=== PATIENT | male | born 1930 | race Caucasian/White ===

== ENCOUNTER 2017-08-03 16:07 | Inpatient (IN) | payer MEDICARE ==
[2017-08-03] MEDS ORDERED: Fentanyl 100 MCG/2 ML VIAL ONE (17:43)
[2017-08-03 18:00] LABS: #Lymphocytes 1.1 thou/uL (1.20-3.40); #Monocytes 0.6 thou/uL (0.11-0.59); #Neutrophils 5.6 thou/uL (1.40-6.50); %Basophils 0.4 % (0.0-1.0); %Eosinophils 0.5 % (0.0-10.0); %Lymphocytes 14.4 % (21.0-51.0); %Monocytes 8.3 % (0.0-10.0); %Neutrophils 76.4 % (42.0-75.0); Hemoglobin 13.3 g/dL (14.0-18.0); Mean Corpuscular HGB CONC 32.2 g/dL (32.0-36.0); Mean Corpuscular Hemoglobin 29.4 pg (27.0-31.0); Mean Corpuscular Volume 91.3 fl (80.0-94.0); Mean Platelet Volume 6.9 fL (7.4-10.4); Platelet Count 173 thou/uL (130-400); RBC Distribution Width 13.1 % (11.5-14.5); Red Blood Cell (RBC) Count 4.52 mill/uL (4.70-6.10); White Blood Cell (WBC) Count 7.3 thou/uL (4.8-10.8)
--- NOTE | 2017-08-03 18:08 | RAD ---
AP PELVIS: 08/03/17 HISTORY: Fall. Left hip pain. FINDINGS/IMPRESSION: There is a fracture involving the neck of the left femur. POS: ADELA
[2017-08-03 18:21] LABS: ALT (SGPT) 9 U/L (8-55); AST (SGOT) 17 U/L (5-34); Albumin 4.2 g/dL (3.4-4.8); Alkaline Phosphatase 72 U/L (40-150); Anion Gap 13 mmol/L (10-20); BUN (Urea Nitrogen) 22 mg/dL (8.4-25.7); Bilirubin, Total 0.6 mg/dL (0.2-1.2); Calc. Creatinine Clearance 0 mL/min (70-130); Calcium 9.7 mg/dL (7.8-10.44); Carbon Dioxide 24 mmol/L (23-31); Chloride 106 mmol/L (98-107); Estimated GFR-MDRD 48; Globulin 2.7 g/dL (2.4-3.5); Glucose 195 mg/dL (83-110); Potassium 4.3 mmol/L (3.5-5.1); Protein, Total 6.9 g/dL (5.8-8.1); Sodium 139 mmol/L (136-145)
[2017-08-03] MEDS ORDERED: hydrALAZINE 20 MG/ML VIAL SLOW IVP PRN (19:10)
[2017-08-03] MEDS ORDERED: Dextrose 50% Abboject 50 ML SYRINGE SLOW IVP PRN (19:10)
[2017-08-03] MEDS ORDERED: Dextrose 5% in Water 1,000 ML IV PRN (19:10)
[2017-08-03] MEDS ORDERED: Ondansetron ODT 4 MG TAB PO PRN (19:10)
[2017-08-03] MEDS ORDERED: Ondansetron HCl/PF 4 MG/2 ML Vial IVP PRN (19:10)
[2017-08-03] MEDS ORDERED: Promethazine HCl 25 MG/ML VIAL IM PRN (19:10)
[2017-08-03] MEDS ORDERED: CEFAZOLIN/Water 2 GM/20 ML SYRINGE SLOW IVP SCH (19:45)
--- NOTE | 2017-08-03 20:58 | CON ---
DATE OF CONSULTATION: 08/03/2017 REQUESTING PHYSICIAN: Dr. Darin Kuhn. BRIEF HISTORY OF PRESENT ILLNESS: The patient is an 87-year-old gentleman who is in a [facility]. Earlier today he reports that while at his home, he stepped backwards, slipped and fell, landing on his left side. He reports immediate groin pain and proximal thigh pain. He wa s subsequently evaluated at the [facility] where x-rays were obtained and showe d a mildly displaced femoral neck fracture. The patient was subsequently transferred to [place], [place] for orthopedic evaluation and definitive care. The patient denies any dizziness or lo ss of consciousness. He denies striking his head as a result of the fall. Of note, the patient's [facility] hospitalization was in January 2017 at which time he had a syncopal episode and collapse. PAST MEDICAL HISTORY: Remarkable for coronary artery disease, type 2 diabetes, Parkinson's disease, hyperlipidemia, and benign prostatic hypertrophy. PAST SURGICAL HISTORY: Includes pacemaker placement and tonsillectomy. ALLERGIES: None known. MEDICATIONS: At the time the admission, his emergency room list of medications included aspirin, pro pranolol, simvastatin, tamsulosin, pramipexole, niacin, and levodopa. REVIEW OF SYSTEMS: The patient denies any recent fevers, chills, or sweats. He denies current chest pain or shortness of breath. He denies numbness or tingling in the lower extremity except for some minor stocking distribution dysesthesias. FAMILY HISTORY: Noncontributory. SOCIAL HISTORY: The patient does not smoke. He denies alcohol. He does live by himself in an [facility] living environment. PHYSICAL EXAMINATION: VITAL SIGNS: He was found to have a temperature of 97.8 degrees Fahrenheit, a heart rate of 73, resp iratory rate of 18, and blood pressure 124/68. HEENT: Atraumatic, normocephalic. His oral mucous membranes are dry. NECK: Nontender and supple. HEART: Shows a regular rate and rhythm without murmur. Chest wall is nontender. LUNGS: Remarkable for good breath sounds bilaterally. ABDOMEN: Flat and nontender. EXTREMITIES: Remarkable for a left lower extremity with the hip held in slight flexion and external rotation. He has pain with log rolling of the thigh with pain felt in the groin area. The knee, ank le, and foot appear atraumatic. He is wiggling his toes and denies any new numbness in the lower ext remity. LABORATORY DATA: He was found to have a white count of 7.3, hematocrit 41.3 and 173,000 platelets. His chemistry panel is roughly within normal limits except for creatinine of 1.4 and glucose of 195. Hip x-rays were performed at [place] and a followup AP pelvis x-ray performed at [place]. Thes e are remarkable for a fractured femoral neck with some displacement. PT/INR is pending. ASSESSMENT: An 87-year-old gentleman status post ground level fall sustaining a left femoral neck fr acture with displacement. PLAN: At this time, the patient is being admitted to the trauma service. Tomorrow we will proceed w ith a left hip hemiarthroplasty. This evening I discussed with the patient the risks and benefits of this procedure. The risks include, but are not limited to bleeding, infection, nerve injury, DVT, d islocation, periprosthetic fracture, loss of limb or life, DVT, PE. The patient appears to understan d and does wish to proceed. Informed consent will be obtained prior to surgery.
[2017-08-03] MEDS: Sodium Chloride 0.9% 1,000 ML IV SCH (22:24)
[2017-08-03] MEDS: Famotidine/PF 20 mg/2ml Vial SLOW IVP SCH (22:24)
[2017-08-03] MEDS ORDERED: Acetaminophen 1,000 MG in Premix Bag 1 BAG IVPB PRN (23:09)
[2017-08-03] MEDS ORDERED: Carbidopa/Levodopa 10-100 mg Tablet PO SCH (23:30)
[2017-08-04] MEDS: Morphine 4 MG/ML VIAL SLOW IVP PRN ×4 (00:01→09:34)
[2017-08-04 00:21] VITALS: BMI 25.9
--- NOTE | 2017-08-04 01:49 | HP ---
DATE OF ADMISSION: 08/03/2017 REQUESTING PHYSICIAN: Venu Marcano D.O. ADMITTING PHYSICIAN: Dr. Kuhn. CONSULTING PHYSICIAN: Venu Vargas M.D. Orthopedics. HISTORY OF PRESENT ILLNESS: The patient is an 87-year-old male who was in his usual state of health at home when he was moving some things and his feet got tangled up in items on the floor, he fell ont o his left hip. He initially went to an outside hospital and was diagnosed with left hip fracture. He was then transferred to another hospital in the [facility]. He was then transferred to [facility] in [place], where repeat x-ray was done, showing a left femoral neck fracture. The patien t complains of pain to his left hip. The pain is controlled when he is not moving. The pain is inte nsified by movement. He describes no other areas of injury and no other pain. Trauma services was c onsulted for admission and management. Orthopedics has been consulted by the ER MD. PAST MEDICAL HISTORY: Coronary artery disease, diabetes, high cholesterol, Parkinson's. PAST SURGICAL HISTORY: Includes pacemaker placement and tonsillectomy. SOCIAL HISTORY: Denies alcohol, drug or tobacco use. FAMILY HISTORY: Mother from cancer. Father from lung disease. One sister with cancer. LABORATORY STUDIES: CBC: WBC 4.9, hemoglobin 13.4, hematocrit 40.8, platelets 154. Chemistry: Sod ium 137, potassium 5.1, CO2 of 22, BUN 23, creatinine 1.7, glucose 367. Diagnostic imaging pelvis x- ray with fracture involving neck of the left femur. REVIEW OF SYSTEMS: CONSTITUTIONAL: Denies chills, fever or weight change. HEENT: Negative. RESPIRATORY: Negative. Denies cough or shortness of breath. CARDIOVASCULAR: Negative. Denies chest pain or palpitations. GASTROINTESTINAL: Negative. Denies abdominal pain, constipation or diarrhea. MUSCULOSKELETAL: Left hip pain. SKIN: Negative. NEUROLOGIC: Negative. Denies sensory deficits. Denies focal weakness. PSYCHIATRIC: Negative. PHYSICAL EXAMINATION: CONSTITUTIONAL: An 87-year-old male lying on bed in no apparent distress. HEENT: Atraumatic, normocephalic. RESPIRATORY: Bilateral breath sounds clear. No respiratory distress. CARDIAC: Regular rate and rhythm. Heart sounds normal. ABDOMEN: Soft, nontender, nondistended. EXTREMITIES: Pain with palpation or movement to left lateral hip. Cap refill brisk all extremities. Neurovascular intact all extremities. NEUROLOGIC: GCS 15, alert and oriented x3. SKIN: No external trauma noted. ASSESSMENT AND PLAN: 1. An 87-year-old male ground level fall. 2. Left femoral neck fracture. PLAN: 1. Admit to hospital. 2. N.p.o., IV fluids, IV analgesia. 3. Consult to Dr. Vargas, Orthopedics. 4. Discussed code status with the patient. The patient is a full code. The patient was reviewed with Dr. Kuhn, who agrees with assessment and plan.
[2017-08-04 05:01] LABS: #Eosinphils 0.2 thou/uL (0.0-0.7); #Lymphocytes 0.8 thou/uL (1.20-3.40); #Monocytes 0.3 thou/uL (0.11-0.59); #Neutrophils 3.3 thou/uL (1.40-6.50); %Basophils 0.9 % (0.0-1.0); %Lymphocytes 16.9 % (21.0-51.0); %Monocytes 6.8 % (0.0-10.0); %Neutrophils 71.4 % (42.0-75.0); Hemoglobin 12.7 g/dL (14.0-18.0); Mean Corpuscular HGB CONC 33.2 g/dL (32.0-36.0); Mean Corpuscular Hemoglobin 31.2 pg (27.0-31.0); Mean Corpuscular Volume 93.9 fl (80.0-94.0); Mean Platelet Volume 7.8 fL (7.4-10.4); Platelet Count 166 thou/uL (130-400); Red Blood Cell (RBC) Count 4.07 mill/uL (4.70-6.10); White Blood Cell (WBC) Count 4.6 thou/uL (4.8-10.8)
[2017-08-04 05:03] LABS: PTT 25.7 SEC (22.9-36.1)
[2017-08-04 05:04] LABS: INR-International Normal Ratio 1.1; Prothrombin Time 14.2 SEC (12.0-14.7)
[2017-08-04 05:15] LABS: Anion Gap 14 mmol/L (10-20); BUN (Urea Nitrogen) 20 mg/dL (8.4-25.7); Calc. Creatinine Clearance 40 mL/min (70-130); Calcium 9.5 mg/dL (7.8-10.44); Carbon Dioxide 23 mmol/L (23-31); Chloride 103 mmol/L (98-107); Estimated GFR-MDRD 46; Glucose 320 mg/dL (83-110); Potassium 4.8 mmol/L (3.5-5.1); Sodium 135 mmol/L (136-145)
[2017-08-04] MEDS: Sodium Chloride 0.9% 1,000 ML IV SCH ×2 (06:43→17:28)
[2017-08-04] MEDS: Propranolol HCl 20 MG TAB PO SCH ×2 (09:27→21:28)
[2017-08-04] MEDS: Famotidine/PF 20 mg/2ml Vial SLOW IVP SCH ×2 (09:29→21:28)
[2017-08-04] MEDS: Pramipexole Di-HCl 0.125 MG TAB PO SCH ×4 (09:32→21:28)
[2017-08-04] MEDS: Tamsulosin HCl 0.4 MG CAP PO SCH (09:32)
[2017-08-04] MEDS: Carbidopa/Levodopa 10-100 mg Tablet PO SCH ×3 (09:41→21:27)
--- NOTE | 2017-08-04 12:21 | PRG ---
DATE OF SERVICE: 08/04/2017 ATTENDING PHYSICIAN: Jean Brock D.O. SUBJECTIVE: The patient is an 87-year-old male who sustained a hip fracture after a ground level fal l when he tripped on items at his home. He was initially seen at the outside facility and then trans ferred to [facility] for higher level of care. He was evaluated in the emergency room and admitted t o the floor by Trauma Services. Dr. Vargas, Orthopedic, has seen the patient and evaluated and mana nned for surgery later this afternoon. Pain has been well controlled. The patient has been stable i n the floor. OBJECTIVE: VITAL SIGNS: Temperature 98.7, pulse 69, respirations 15, O2 sat 95% on 2 liters O2, blood pressure 123/67. GENERAL: Elderly male lying in bed, in no acute distress. HEENT: Atraumatic, normocephalic. PULMONARY: Bilateral breath sounds clear to auscultation. No respiratory distress. CARDIOVASCULAR: Regular rate and rhythm. Heart sounds normal. ABDOMEN: Soft, nontender, nondistended. EXTREMITIES: Cap refill brisk. Neurovascular intact all extremities. Pain with palpation or moveme nt to left lateral hip area. NEUROLOGIC: GCS 15, awake, alert, oriented x3. ASSESSMENT: 1. An 87-year-old male status post ground level fall. 2. Left femoral neck fracture with displacement. 3. History of diabetes type 2. PLAN: 1. Continue current care as ordered on surgical floor. 2. Continue n.p.o., IV fluid. 3. Plan for OR today with Dr. Vargas. 4. Glucose has been elevated. I will not adjust the sliding scale insulin at this time. We will co ntinue to monitor after OR when the patient begins regular diet. 5. Chemical DVT prophylaxis when cleared by Orthopedic Surgery. 6. PT, OT evaluation. 7. Rehab referral. The patient was seen and examined with Dr. Brock, attending trauma surgeon, who agrees with the assessment and plan.
[2017-08-04] MEDS ORDERED: Insulin Regular 300 UNITS/3 ML VIAL ONE (13:38)
[2017-08-04] MEDS ORDERED: Fentanyl 100 MCG/2 ML VIAL ONE (13:55)
[2017-08-04] MEDS ORDERED: PHENYLEPHRINE-NS 100 MCG/ML 10 ML SYRINGE ONE (14:09)
[2017-08-04] MEDS ORDERED: Lidocaine 1% PF 5 ML VIAL ONE (14:09)
[2017-08-04] MEDS ORDERED: Propofol 200 MG/20 ML VIAL ONE (14:09)
[2017-08-04] MEDS ORDERED: Ondansetron HCl/PF 4 MG/2 ML Vial ONE (14:09)
--- NOTE | 2017-08-04 15:42 | OP ---
DATE OF SURGERY: 08/04/2017 PREOPERATIVE DIAGNOSIS: Left femoral neck fracture, displaced. POSTOPERATIVE DIAGNOSIS: Left femoral neck fracture, displaced. SURGICAL PROCEDURE: Left hip hemiarthroplasty. ANESTHESIA: General. SURGEON: Venu Vargas M.D. PIT RECORDER: Brandon Moreno PA-C IMPLANTS: [employer] [place] size 7 stem with 28 x 51 bipolar cup and a +8.5 head. BLOOD LOSS: 100 mL. DRAINS: None. SPECIMEN: None. OUTCOME: Satisfactory. COMPLICATIONS: None. INDICATIONS: The patient is a pleasant 87-year-old gentleman who fell in his senior living sustaining a displaced femoral neck fracture, left side. After discussion with patient including risks and elian efits, we decided to proceed with hemiarthroplasty. I believe all questions have been answered and i nformed consent has been obtained. PROCEDURE IN DETAIL: The patient was brought to the operating room and a timeout performed followed by induction of general anesthesia. The patient was then positioned in right lateral decubitus posit ion and a sterile prep and drape was performed of the left lower extremity. Next, a skin incision wa s made centered over the greater trochanter. After the skin was sharply incised, dissection was montoya ied down with electrocautery through the subcutaneous fat down to the tensor fascia and fascia bteo. This was incised in line with the skin incision and reflected anteriorly and posteriorly with a Aster nley retractor. The trochanteric bursa was swept off the short external rotators and then an elevato r was passed under the abductors exposing the piriformis superior and inferior gemelli. The piriform is was released from its femoral attachment and tagged and then reflected posteriorly as were the gem juan. Next, a T capsulotomy was performed with the edges of the leaflets of the capsule tagged for e ventual repair. At this point, the fracture could be visualized. The femoral head was then removed with a T handle corkscrew device. An oscillating saw was then used to make a femoral neck cut just a little under 1 cm above the lesser trochanter. Next, an initial T handle awl was passed down the ca nal of the femur. This was followed by passage of a lateralizing reamer. Sequential T handle machado were then passed down the canal up to a size 7, which gave excellent fit in the proximal shaft. Broa sarabjit was started at size 4 and continued up to a size 7, which also gave good fit. While the size [address], a calcar reamer was passed over the broach to further prepare the calcar region of the femur. A trial reduction was then performed with a 52 head and a +8.5 neck component. This was felt to be normalization of leg lengths with acceptable stability. This was then removed from th e proximal femur. The wound was then thoroughly irrigated with 3 liters of normal saline using Pulsa vac and then the final size 7 stem was inserted in the proximal femur followed by insertion of the bi polar cup. In the 90-90 position, the hip could be brought into a nearly 70 degrees of internal rota tion before subluxation was appreciated. Next, the leg was brought into extension and slight interna l rotation. The capsule was reapproximated with #2 Vicryl and then the piriformis and gemelli were r eattached with #2 Vicryl as well. The Charnley retractor was removed and then the fascia beto and te nsor fascia was reapproximated with #2 Vicryl followed by 0 Vicryl for Lynda's fascia, 2-0 Vicryl pompa bcutaneously, and jaspreet for the skin. A Xeroform gauze and tape dressing was then applied to the t high and then patient was then transferred to recovery room in stable condition. There were no compl ications. He tolerated the procedure well.
[2017-08-04] MEDS ORDERED: Ondansetron HCl/PF 4 MG/2 ML Vial IVP PRN (15:45)
[2017-08-04] MEDS ORDERED: Morphine 4 MG/ML Carpuject ONE (16:46)
[2017-08-04] MEDS: CEFAZOLIN/Water 2 GM/20 ML SYRINGE SLOW IVP SCH ×2 (16:59→23:23)
[2017-08-04] MEDS ORDERED: traMADol HCl 50 MG TAB PO PRN (20:33)
--- NOTE | 2017-08-04 20:48 | RAD ---
LEFT HIP TWO VIEWS: History: Post op total hip replacement. FINDINGS/IMPRESSION: There are post changes of placement of a left femoral head prosthesis in good position and alignment. Surgical jaspreet and soft tissue are present. POS: ADELA
[2017-08-04] MEDS: Atorvastatin Calcium 20 MG TAB PO SCH (21:28)
[2017-08-04] MEDS: HumaLOG 300 UNITS/3 ML VIAL SC PRN (21:29)
[2017-08-04] MEDS: traMADol HCl 50 MG TAB PO SCH (23:23)
[2017-08-04] MEDS: Acetaminophen 500 MG TAB PO SCH (23:23)
[2017-08-05] MEDS: Sodium Chloride 0.9% 1,000 ML IV SCH (03:44)
[2017-08-05] MEDS: traMADol HCl 50 MG TAB PO SCH ×3 (05:35→19:00)
[2017-08-05] MEDS: Acetaminophen 500 MG TAB PO SCH ×3 (05:35→19:00)
[2017-08-05 05:57] LABS: Band 5 % (5-11); Eosinophils 1 % (0-10); Hemoglobin 10.2 g/dL (14.0-18.0); Lymphocytes 22 % (21-51); MDiff Complete? YES; Mean Corpuscular HGB CONC 32.2 g/dL (32.0-36.0); Mean Corpuscular Hemoglobin 29.5 pg (27.0-31.0); Mean Corpuscular Volume 91.7 fl (80.0-94.0); Monocytes 5 % (0-10); Neutrophil 63 % (42-75); PLT Morphology Comment Appears Adequate; Platelet Count 140 thou/uL (130-400); RBC Distribution Width 12.6 % (11.5-14.5); Red Blood Cell (RBC) Count 3.44 mill/uL (4.70-6.10); White Blood Cell (WBC) Count 5.8 thou/uL (4.8-10.8)
[2017-08-05 05:59] LABS: Anion Gap 12 mmol/L (10-20); BUN (Urea Nitrogen) 21 mg/dL (8.4-25.7); Calc. Creatinine Clearance 40 mL/min (70-130); Calcium 8.5 mg/dL (7.8-10.44); Carbon Dioxide 23 mmol/L (23-31); Chloride 103 mmol/L (98-107); Estimated GFR-MDRD 46; Glucose 458 mg/dL (83-110); Magnesium 1.7 mg/dL (1.6-2.6); Phosphorus 3.1 mg/dL (2.3-4.7); Potassium 4.2 mmol/L (3.5-5.1); Sodium 134 mmol/L (136-145)
[2017-08-05] MEDS: HumaLOG 300 UNITS/3 ML VIAL SC PRN ×3 (06:02→21:13)
[2017-08-05] MEDS ORDERED: Dextrose 5% in Water 1,000 ML IV PRN ×2 (07:03→15:36)
[2017-08-05] MEDS ORDERED: HumaLOG 300 UNITS/3 ML VIAL SC PRN (07:03)
[2017-08-05] MEDS ORDERED: Dextrose 50% Abboject 50 ML SYRINGE SLOW IVP PRN ×2 (07:03→15:36)
[2017-08-05] MEDS: Insulin Detemir 100 UNITS/ML 30 UNITS in Pre-Filled Syringe SC SCH (08:39)
[2017-08-05] MEDS: Famotidine/PF 20 mg/2ml Vial SLOW IVP SCH ×2 (08:39→21:09)
[2017-08-05] MEDS: Docusate 100 MG CAP PO SCH (08:39)
[2017-08-05] MEDS: Pramipexole Di-HCl 0.125 MG TAB PO SCH ×3 (08:39→21:10)
[2017-08-05] MEDS: Tamsulosin HCl 0.4 MG CAP PO SCH (08:39)
[2017-08-05] MEDS: Senokot 8.6 MG TAB PO SCH (08:39)
[2017-08-05] MEDS: Propranolol HCl 20 MG TAB PO SCH ×2 (08:40→21:12)
[2017-08-05] MEDS: Carbidopa/Levodopa 10-100 mg Tablet PO SCH ×3 (08:40→21:10)
--- NOTE | 2017-08-05 19:15 | PRG ---
DATE OF SERVICE: 08/05/2017 ATTENDING PHYSICIAN: Dr. Jean Brock. This is Jackie Sosa, nurse practitioner, daily progress no te for Dr. Jean Brock. SUBJECTIVE: Mr. Yao is an 87-year-old male who is postoperative day #1, status post left hip hemiar throplasty. He has been stable in the surgical floor. The pain has been well controlled. Blood glu cose has not been well controlled. Levemir was added back at his home dose this morning. He is mobi lizing with physical and occupational therapy. OBJECTIVE: VITAL SIGNS: Temperature 98.0, pulse 63, respirations 15, O2 sat 96% on 2 liters, blood pressure 102 /65. CONSTITUTIONAL: Elderly male sitting up in bed, in no acute distress. PULMONARY: No respiratory distress. Respirations even and unlabored. Bilateral breath sounds clear . CARDIOVASCULAR: Regular rate and rhythm. ABDOMEN: Soft, nontender, nondistended. EXTREMITIES: Cap refill brisk in all extremities. Neurovascularly intact in all extremities. Dress ing to the left hip in place, clean, dry, and intact. NEUROLOGIC: GCS of 15. PSYCHIATRIC: AO x3. ASSESSMENT: 1. Status post ground level fall. 2. Status post left hip hemiarthroplasty. 3. Hyperglycemia. PLAN: 1. Transitional medication to oral. 2. Mobilized with physical and occupational therapy. 3. Add back home dose metformin and increase sliding scale to high dose. Continue to monitor blood glucose. 4. Case management for discharge planning and placement. 5. Pepcid for PUD prophylaxis. 6. Chemical DVT prophylaxis when okay with Orthopedics. The patient was seen and examined with Dr. Brock, who agrees with the assessment and plan.
[2017-08-05] MEDS ORDERED: metFORMIN 500 MG TAB PO SCH (21:00)
[2017-08-05] MEDS: Atorvastatin Calcium 20 MG TAB PO SCH (21:10)
[2017-08-05] MEDS ORDERED: Propranolol HCl 20 MG TAB PO SCH (21:30)
[2017-08-06] MEDS: Acetaminophen 500 MG TAB PO SCH ×2 (00:31→06:29)
[2017-08-06] MEDS: traMADol HCl 50 MG TAB PO SCH ×2 (00:31→06:28)
[2017-08-06] MEDS: HumaLOG 300 UNITS/3 ML VIAL SC PRN (06:46)
[2017-08-06] MEDS ORDERED: metFORMIN 500 MG TAB PO SCH (08:00)
[2017-08-06 08:14] VITALS: BP 104/45; TEMP 97.7
[2017-08-06] MEDS ORDERED: Propranolol HCl 20 MG TAB PO SCH (09:00)
[2017-08-06] MEDS: Senokot 8.6 MG TAB PO SCH (09:53)
[2017-08-06] MEDS: Docusate 100 MG CAP PO SCH (09:54)
[2017-08-06] MEDS: Famotidine/PF 20 mg/2ml Vial SLOW IVP SCH (09:54)
[2017-08-06] MEDS: Insulin Detemir 100 UNITS/ML 30 UNITS in Pre-Filled Syringe SC SCH (09:54)
[2017-08-06] MEDS: Pramipexole Di-HCl 0.125 MG TAB PO SCH (09:56)
[2017-08-06] MEDS: Carbidopa/Levodopa 10-100 mg Tablet PO SCH (09:57)
[2017-08-06] MEDS: Tamsulosin HCl 0.4 MG CAP PO SCH (09:57)
--- NOTE | 2017-08-06 22:14 | DIS ---
DATE OF ADMISSION: 08/03/2017 DATE OF DISCHARGE: 08/06/2017 ADMITTING PHYSICIAN: Dr. Darin Kuhn. CONSULTING PHYSICIAN: Dr. Vargas, Orthopedics. REASON FOR HOSPITALIZATION: Ground level fall with left hip pain. HOSPITAL DIAGNOSIS: Left femoral neck fracture with displacement. PROCEDURE: Left hip hemiarthroplasty. DATE OF PROCEDURE: 08/04/2017. SURGEON: Dr. Venu Vargas. PATIENT'S DISCHARGE CONDITION: Good. [facility] to a prison facility. BRIEF HISTORY OF HOSPITALIZATION: The patient is an 87-year-old male who was in his usual state of h ealth when he was moving some things in his home and his feet got tangled up in some items on the [facility] or. He fell onto his left hip. He went to an outside hospital and was diagnosed with a left hip fra cture. He was transferred to [facility]. He was then admitted to the hospital by Trauma Services. Dr. Vargas, Orthopedics, was consulted and subsequently took the patient to [facility]. Postoperatively, he mobilized with physical and occupational therapy. Case management was con sulted for discharge planning. He was accepted to a prison facility where he was discharged to on 08/06/2017. He had no postoperative complications. He is to follow up with Dr. Vargas. He will be on a regular diet. He will continue physical and occupational therapy. He is to be weightb earing as tolerated. There is no need for him to follow up with Trauma Services. The patient was seen and examined with Dr. Brokc, attending trauma surgeon, who agrees with the asses sment and discharge plan.
== END 2017-08-06 11:04 | disposition swing bed (61) | DRG 470 ==
LOC: ERS 16:07 → SURG A 18:46
PROVIDERS: ADMIT Specialist; ATTEND Specialist
PROC: 0SRS0JA Replacement of Left Hip Joint, Femoral Surface with Synthetic Substitute, Uncemented, Open Approach (ICD-10-PCS; principal; 2017-08-04)
DX: S72.002A Fracture of unspecified part of neck of left femur, initial encounter for closed fracture (principal); E11.65 Type 2 diabetes mellitus with hyperglycemia; G20 Parkinson's disease; I25.10 Atherosclerotic heart disease of native coronary artery without angina pectoris; Z95.0 Presence of cardiac pacemaker; N40.0 Benign prostatic hyperplasia without lower urinary tract symptoms; E78.5 Hyperlipidemia, unspecified; Z79.82 Long term (current) use of aspirin; W01.0XXA Fall on same level from slipping, tripping and stumbling without subsequent striking against object, initial encounter; Y92.009 Unspecified place in unspecified non-institutional (private) residence as the place of occurrence of the external cause
CPT/HCPCS: 36415; 36416; 72170; 80048; 80053; 83735; 84100; 85007; 85025; 85027; 85610; 85730; 96374; G0390; G8978-GP-CM; G8979-GP-CK; G8987-GO-CL; G8988-GO-CI; J1815; J2001; J2270; J2405; J2704; J3010; S0028